=== PATIENT | female | born 1980 | race Caucasian/White ===

== ENCOUNTER 2020-04-15 08:28 | Emergency (ER) | payer BC, SELFPAY ==
[~2020-04-15] VITALS: Ht 210.8 cm; Wt 111.1 kg
[2020-04-15 08:30] VITALS: Ht 210.8 cm; Wt 111.1 kg
[2020-04-15 09:49] LABS: BASOPHIL % 1.1 % (0.2-1.3); PLATELET COUNT 284 x10^3mcL (179-408)
[2020-04-15 10:09] LABS: CALCIUM 9.6 mg/dL (8.5-10.1); CARBON DIOXIDE 26.4 mmol/L (21-32); CHLORIDE SERUM 103 mmol/L (98-107); CREATININE SERUM 0.9 mg/dL (0.6-1.0); GFR1 > 60 mL/min; GLUCOSE SERUM 97 mg/dL (74-106); POTASSIUM SERUM 3.9 mmol/L (3.5-5.1); SODIUM SERUM 139 mmol/L (136-145)
[2020-04-15 10:17] LABS: ALBUMIN 3.8 g/dL (3.4-5.0); ALKALINE PHOSPHATASE 67 U/L (46-116); ALT/SGPT 39 U/L (14-59); AST/SGOT 23 U/L (15-37); BILIRUBIN TOTAL 0.7 mg/dL (0.20-1.00); LIPASE 132 IU/L (73-393)
[2020-04-15 10:20] LABS: TOTAL PROTEIN, SERUM 8.3 g/dL (6.4-8.2)
[2020-04-15 10:52] LABS: RED CELL DISTRIBUTION WIDTH 14.7 % (12.3-17.7)
[2020-04-15 16:59] VITALS: BP 141/94
== END 2020-04-15 14:30 | disposition left against medical advice (07) ==
LOC: ED 08:28
PROVIDERS: Emergency Medicine
DX: M54.6 Pain in thoracic spine (principal); R10.13 Epigastric pain; Z88.1 Allergy status to other antibiotic agents; Z91.041 Radiographic dye allergy status
CPT/HCPCS: 85378